=== PATIENT | male | born 1975 | race Caucasian/White ===

== ENCOUNTER 2017-01-01 21:28 | Emergency (ER) | payer OTHER ==
[2017-01-01 21:44] VITALS: BP 108/80; PULSE 65; RESP 15; TEMP 98.2; O2SAT 97
[2017-01-01] MEDS ORDERED: AMOXICILLIN/CLAVULANATE POT 875/125 MG TAB PO ONE (21:46)
--- NOTE | 2017-01-01 21:48 | EDPHY ---
H & P HPI/ROS: CHIEF COMPLAINT: Cat bite History by patient HISTORY OF PRESENT ILLNESS: 41-year-old otherwise healthy man presents complaining of bites and scratches from his CT which happened about an hour prior to admission. Apparently has 2 cats got outside and became excited were fighting and he tried to separate them and he got scratched on his left lower leg and bit on his left thumb. Per old records his last tetanus shot was in 2012. He washed the wounds and put bacitracin on them and came in to be seen. REVIEW OF SYSTEMS: As in HPI, and all other systems reviewed and are negative Physical Exam: General Appearance: Alert and no distress. Eyes: Pupils equal and round no injection. Musculoskeletal: Neck is supple and nontender. Extremities: Left lower leg multiple linear abrasions and scratch nation on posterior calf and popliteal fossa, left thumb positive puncture wound an abrasion. Distal neurovascular intact. Skin: No rashes or lesions except as described above. Allergies/Adverse Reactions: No Known Allergies Allergy (Verified 01/26/13 19:32) Home Medications: Medication Instructions Recorded Amoxicillin/Clavulanate Pot 875 mg PO BID #14 tab 01/01/17 [Augmentin 875 MG TAB (*)] Indomethacin 01/01/17 MDM/Departure - MDM ED Course/Re-evaluation: Patient presents with multiple scratches and abrasions from his cat as well as a bite to the left thumb. Patient will therefore be put on prophylactic antibiotics. We discussed signs and symptoms of infection to watch for and home wound care. - Depart Disposition: Home, Routine, Self-Care Clinical Impression: Cat bite involving extremity Cat scratch of left lower leg Qualifiers: Encounter type: initial encounter Qualified Code(s): S80.812A - Abrasion, left lower leg, initial encounter; W55.03XA - Scratched by cat, initial encounter Condition: Good Instructions: Animal Bite (ED) Additional Instructions: You were seen by Dr. Julieta Mar today. Wash your wounds with soap and water. Soak your hand in warm soapy water to 3 times a day for the next 48 hours. Take antibiotics as prescribed. Take probiotics in between doses to prevent antibiotic associated diarrhea. Watch for signs and symptoms of infection including but not limited to fever, pus in the wound, increasing pain, swelling or redness. Return for any worsening or new concerns. Prescriptions: Amoxicillin/Clavulanate Pot [Augmentin 875 MG TAB (*)] 875 mg PO BID #14 tab Referrals: [facility],UNKNOWN [Other] - As per Instructions
== END 2017-01-01 21:55 | disposition home or self-care (01) ==
LOC: CED 21:28
DX: S81.852A Open bite, left lower leg, initial encounter (principal); S80.812A Abrasion, left lower leg, initial encounter; S61.052A Open bite of left thumb without damage to nail, initial encounter; W55.03XA Scratched by cat, initial encounter

== ENCOUNTER → 2017-11-15 | Outpatient (CLI) | payer OTHER | LOC: BMCIMAGING 11:28 | PROVIDERS: ATTEND Podiatrist Foot & Ankle Surgery | DX: M79.671 Pain in right foot (principal); M77.31 Calcaneal spur, right foot ==